=== PATIENT | female | born 1950 | race Caucasian/White ===

== ENCOUNTER → 2018-12-07 16:07 | Outpatient (CLI) | payer MEDICARE, BC, SELFPAY ==
--- NOTE | 2018-12-07 | BRBX_PTH ---
PATIENT: VELASQUEZ ESTRELLA LOC: [facility] U#:[id number] AGE/SX: 75/F ROOM: RE12/07/[address]: Dr. Nathaniel Carvalho MD : 1950 BED: DIS: SPEC #: [id number] RECD: 12/07/18 16:01 STATUS: KATHARINE DALTON #: [id number] NATACHA: 12/07/18 00:[address]: Nathaniel Carvalho DEPT: SURGICAL PATHOLOGY RECD BY: Alexander Mcpherson ENTERED: 12/08/18 10:05 SP TYPE: BREAST BX OTHR DR: Dr. Ezequiel Bueno MD Tissues: Left breast, NOS Procedures: Surgery Specimen Level IV HEADER OPERATION: Ultrasound-guided left breast biopsy PRE-OP DIAGNOSIS: Abnormal mammogram TISSUE SUBMITTED: Left breast biopsy MICROSCOPIC DIAGNOSIS Left breast, ultrasound-guided core biopsy: Collagenized stroma. Focal intraductal hyperplasia without atypia. No evidence of malignancy. AM:indy 12/09/18 COMMENT Case has been reviewed in consultation with Dr. Randolph who concurs with the above diagnosis. IDC:SJ MICROSCOPIC DESCRIPTION Slides are reviewed. GROSS DESCRIPTION Received is one container labeled with the patient's name and not further designated. The specimen consists of multiple elongated fragments of de la paz-yellow fibroadipose tissue that in aggregate measure 2 x 0.3 x 0.1 cm. The entire specimen is submitted in one cassette. / SJ:indy 12/08/18 TC:5 CPT: 96502
== END ==
PROVIDERS: Family Provider Family Medicine; PCP Family Medicine; Referring Provider Surgery; Visit Provider Surgery
DX: R92.8 Other abnormal and inconclusive findings on diagnostic imaging of breast (principal)
CPT/HCPCS: 88305

== ENCOUNTER → 2018-12-13 08:19 | Outpatient (CLI) | payer MEDICARE, BC, SELFPAY ==
--- NOTE | 2018-12-13 21:27 | PCM.OPRPT ---
Report of Operation Date of Procedure: 12/13/18 Pre-Operative Diagnosis: vague right breast abnormality Post-Operative Diagnosis: unable to localize right breast abnormality Surgery/Procedure Performed:: aborted attempted right stereotactic breast biopsy seamer panty hose: None Type of Anesthesia:: None Description of Procedure: The patient was brought to the stereotactic suite and informed of the plan course of events. The right breast was positioned in the CC approach on the Stanton stereotactic table. Mammographic image demonstrated the area of abnormality to be quite vague with compression at the expected site of abnormality using calcifications to help assure proper location. Stereotactic images were then obtained which demonstrated no obviously localizable abnormalities on either stereotactic image. The procedure was therefore aborted with plans for 6 month follow-up mammogram imaging.
--- NOTE | 2018-12-13 21:30 | OP.PCM_ITS ---
Report of Operation Date of Procedure: 12/13/18 Pre-Operative Diagnosis: vague right breast abnormality Post-Operative Diagnosis: unable to localize right breast abnormality Surgery/Procedure Performed:: aborted attempted right stereotactic breast biopsy dry dip worker: None Type of Anesthesia:: None Description of Procedure: The patient was brought to the stereotactic suite and informed of the plan c ourse of events. The right breast was positioned in the CC approach on the Stanton stereotactic table. Mammographic image demonstrated the area of abnormality to be quite vague with compression at the expected site of abnormality using calcifications to help assure proper location. Stereotactic images were then obtained which demonstrated no obviously localizable abnormalities on either stereotactic image. The procedure was therefore aborted with plans for 6 month follow-up mammogram imaging.
== END ==
PROVIDERS: Family Provider Family Medicine; PCP Family Medicine; Referring Provider Surgery; Visit Provider Surgery
DX: R92.8 Other abnormal and inconclusive findings on diagnostic imaging of breast (principal); Z53.8 Procedure and treatment not carried out for other reasons; I10 Essential (primary) hypertension; E11.3293 Type 2 diabetes mellitus with mild nonproliferative diabetic retinopathy without macular edema, bilateral; E11.42 Type 2 diabetes mellitus with diabetic polyneuropathy; I73.9 Peripheral vascular disease, unspecified; E78.5 Hyperlipidemia, unspecified; E55.9 Vitamin D deficiency, unspecified; Z96.651 Presence of right artificial knee joint
CPT/HCPCS: 19081

== ENCOUNTER → 2020-09-25 17:21 | Outpatient (CLI) | payer MEDICARE, BC, SELFPAY | PROVIDERS: PCP Family Medicine; Referring Provider Family Medicine; Visit Provider Family Medicine | DX: Z20.828 Contact with and (suspected) exposure to other viral communicable diseases (principal) | CPT/HCPCS: 87635; C9803; U0003 ==

== ENCOUNTER 2021-01-23 14:36 | Outpatient (RCR) | payer MEDICARE, BC, SELFPAY | END 2021-01-23 23:59 | LOC: IMMUN 14:36 | PROVIDERS: PCP Family Medicine; Referring Provider Family Medicine; Visit Provider Family Medicine | DX: Z23 Encounter for immunization (principal) | CPT/HCPCS: 0011A; 0012A ==

== ENCOUNTER 2021-04-21 13:07 | Emergency (ER) | payer MEDICARE, BC, SELFPAY ==
[2021-04-21 13:08] VITALS: BP 141/66; PULSE 81; RESP 18; TEMP 36.6; O2SAT 97; BMI 28.1
--- NOTE | 2021-04-21 13:39 | RAD_ITS ---
STUDY: X-RAY - LEFT FOOT CLINICAL: Female, 70 years old. Infection TECHNIQUE: 3 view(s) of the foot. COMPARISON: None. FINDINGS: Deformity of the navicular bone could be due to old injury. Acute fracture cannot be entirely excluded. Narrowing of the talonavicular joint. Deformity of the head of the third metatarsal. No demonstrated acute fracture. Mild degenerative arthrosis of the first metatarsophalangeal joint. Mild soft tissue swelling. RAD/Foot min 3 Views IMPRESSION: Deformity of the navicular bone with possible fracture. CT scan of the foot or MRI might add additional information. Electronically Signed: Krishan Sol MD at 14:58 EDT Tel , Service support ,
[2021-04-21 13:42] VITALS: BP 141/66; PULSE 81; RESP 18; TEMP 36.6; O2SAT 97
--- NOTE | 2021-04-21 13:49 | EDS_ITS ---
HPI History of Present Illness Chief Complaint: Cellulitis Informant: patient Narrative Narrative: 70-year-old diabetic female states on she was diagnosed with foot cellulitis and was placed on Keflex. She states that she was told that if it was not better in 2 days to come to emergency. She denies any fevers. She states the redness has spread and the swelling has continued. PFSH PFS Medical History Diabetes Hypertension Home Medications biotin 1 mg PO DAILY 04/21/21 [History Last Taken Unknown] cephalexin 500 mg PO TID 04/21/21 [History Last Taken Unknown] cholecalciferol (vitamin D3) [Vitamin D3] 0 mcg PO DAILY 04/21/21 [History Last Taken Unknown] doxycycline monohydrate 100 mg PO BID #20 capsule 04/21/21 [Rx Last Taken Unknown] insulin aspart U-100 [Novolog Flexpen U-100 Insulin] 15 unit SUBCUT BREAKFAST 04/21/21 [History Last Taken Unknown] insulin aspart U-100 [Novolog Flexpen U-100 Insulin] 17 unit SUBCUT DINNER 04/21/21 [History Last Taken Unknown] insulin aspart U-100 [Novolog PenFill U-100 Insulin] 16 unit SUBCUT LUNCH 04/21/21 [History Last Taken Unknown] insulin detemir U-100 [Levemir Flexpen] 50 unit SUBCUT QHS 04/21/21 [History Last Taken Unknown] lisinopril 10 mg PO BID 04/21/21 [History Last Taken Unknown] magnesium 0 mg PO DAILY 04/21/21 [History Last Taken Unknown] metformin 850 mg PO TID 04/21/21 [History Last Taken Unknown] omega-3 fatty acids-vitamin E [Fish Oil] 0 cap PO DAILY 04/21/21 [History Last Taken Unknown] ped [id number] [Multivit w/Fluoride and Iron] 1 tab PO DAILY 04/21/21 [History Last Taken Unknown] vitamin C32-[id number] acid 0 tab PO DAILY 04/21/21 [History Last Taken Unknown] Allergy/AdvReac Type Severity Reaction Status Date / Time acetaminophen [From Vicodin] Allergy Vomiting Verified 04/21/21 13:08 codeine Allergy Vomiting Verified 04/21/21 13:08 hydrocodone [From Vicodin] Allergy Vomiting Verified 04/21/21 13:08 tolterodine [From Detrol] Allergy PT UNSURE Verified 04/21/21 13:08 OF REACTION Surgical History History of left knee replacement Social History (Updated 04/21/21 @ 13:[address] Omar Millan DO) Smoking Status: Never smoker substance use type: does not use ROS ROS ED Constitutional Constitutional ED: Denies chills or weight loss Eyes Eyes: Denies change in vision or diplopia ENT ENT ED: Denies ear pain, rhinorrhea or sore throat Cardiovascular Cardiovascular: Denies chest pain, orthopnea, palpitations or racing heartbeat Respiratory/Chest Respiratory/Chest: Denies cough, dyspnea or orthopnea Gastrointestinal Gastrointestinal: Denies abdominal pain, diarrhea, nausea or vomiting Genitourinary Genitourinary ED: Denies dysuria, hematuria or urinary frequency Musculoskeletal Musculoskeletal: Reports other Details: Left foot swelling ; Denies arthralgias or myalgias Integumentary Reports rash; Denies abscess Neurologic Neurologic: Denies headache(s) or weakness Psychiatric Psychiatric: Denies anxiety, depression, suicidal ideation or suicidal thoughts Endocrine Endocrinology: Denies polydipsia, polyphagia or polyuria Allergic/Immunologic Allergic/Immunologic ED: Denies mouth swelling, tongue swelling or urticaria EXAM Physical Exam Const Vital Signs: 04/21/21 13:08 04/21/21 13:42 04/21/21 14:10 Temperature 97.8 F 97.8 F 97.8 F Temperature Source Temporal Temporal Temporal Pulse Rate 81 81 81 Respiratory Rate 18 18 18 Blood Pressure 141/66 H 141/66 H 141/66 H Blood Pressure Mean 91 91 91 Pulse Ox 97 97 97 Oxygen Delivery Method Room Air Room Air Room Air Positive well nourished and well developed General Appearance ED: well developed HEENT Reports normocephalic, head/scalp atraumatic and moist mucous membranes Eyes PERRL and EOMs intact bilaterally Neck no lymphadenopathy, supple and no JVD Resp normal respiratory effort and clear to auscultation bilaterally Cardio regular rate, regular rhythm and no murmurs GI normal to inspection, nondistended, normoactive bowel sounds and non-tender Palpation: soft Back/Spine no CVA tenderness and normal ROM Extremity Extremity Narrative: Left foot demonstrates some mild erythema especially on the dorsum and the medial aspect. It is mildly swollen. There is some increased warmth General Extremety ED: Yes edema General Extremity: edema Neuro oriented x3 and CN's II-XII intact bilaterally Sensorium / Orientation: alert Motor Exam: strength 5/5 throughout Psych mental status grossly normal Mood & Affect: Negative for depressed or tearful Skin no rashes or lesions noted and no wounds MDM MDM MDM Narrative Medical decision making narrative: Patient's white blood cell count is normal at 8.2. No shift. X-rays of the foot on my interpretation demonstrated possible navicular fracture. Radiology agrees this. However she has no history of trauma and is not focally tender there. I am going to add in doxycycline to the patient's Keflex. Past that she follow-up with her doctor in 48 hours. Lab Data Labs: Laboratory Results - last 24 hr 04/21/21 13:49 WBC 8.2 RBC 3.70 L Hgb 10.9 L Hct 34.4 L MCV 93.0 MCH 29.5 MCHC 31.7 L RDW Std Deviation 42.4 RDW Coeff of Shannan 12.4 Plt Count 172 MPV 10.1 Immature Gran % (Auto) 0.400 Neut % (Auto) 66.7 Lymph % (Auto) 17.5 L [place] % (Auto) 10.8 H Eos % (Auto) 4.1 Baso % (Auto) 0.5 Absolute Neuts (auto) 5.5 Absolute Lymphs (auto) 1.44 Nucleated RBC % 0 Radiography Diagnostic Testing: Radiology Impression Foot X-Ray 04/21/21 13:39 IMPRESSION: Deformity of the navicular bone with possible fracture. CT scan of the foot or MRI might add additional information. Electronically Signed: Krishan Sol MD at 14:58 EDT Tel , Service support , Discharge Plan Triage Chief Complaint: Cellulitis ED Provider: Omar Millan Dx/Rx/DC Orders Clinical Impression: Cellulitis in diabetic foot Instructions: Cellulitis Prescriptions: New doxycycline monohydrate 100 MG capsule 100 mg PO BID Qty: 20 RF: 0 No Action metformin 850 mg Tablet 850 mg PO TID RF: 0 cephalexin 500 mg capsule 500 mg PO TID RF: 0 lisinopril 10 mg tablet 10 mg PO BID RF: 0 insulin aspart U-100 [Novolog PenFill U-100 Insulin] 100 unit/mL Cartridge 16 unit SUBCUT LUNCH RF: 0 insulin aspart U-100 [Novolog Flexpen U-100 Insulin] 100 unit/mL (3 mL) Insulin Pen 15 unit subcut BREAKFAST RF: 0 insulin aspart U-100 [Novolog Flexpen U-100 Insulin] 100 unit/mL (3 mL) Insulin Pen 17 unit SUBCUT DINNER RF: 0 Levemir Flexpen 100 unit/mL (3 mL) Insulin Pen 50 unit SUBCUT QHS RF: 0 Multivit w/Fluoride and Iron 0.5-12 mg Tablet,Chewable 1 tab PO DAILY RF: 0 magnesium 200 mg Tablet 0 mg PO DAILY RF: 0 Fish Oil 1,000 mg Capsule 0 cap PO DAILY RF: 0 vitamin K72-nusvs acid 0.5-1 mg Tablet 0 tab PO DAILY RF: 0 cholecalciferol (vitamin D3) [Vitamin D3] 50 mcg (2,000 unit) Capsule 0 mcg PO DAILY RF: 0 biotin 1 mg Capsule 1 mg PO DAILY RF: 0 Primary Care Provider: Ezequiel Bueno Referrals: Ezequiel Bueno MD [Primary Care Provider] - 2 Days for wound check Disposition Disposition: Home, self care
[2021-04-21 13:56] LABS: Absolute Lymphocyte Count 1.44 X10^3/uL (0.83-4.51); Absolute Neutrophil Count 5.5 X10^3/uL (2.0-7.7); Basophil# 0.04 X10^3/uL; Basophil% 0.5 % (0-1); Eosinophil# 0.34 X10^3/uL; Eosinophils% 4.1 % (0-5); Hematocrit 34.4 % (37-47); Hemoglobin 10.9 g/dL (12.0-15.0); Lymphocyte # 1.44 X10^3/ul (0.83-4.51); Lymphocyte % 17.5 % (19-41); Mean Corp Hgb Conc 31.7 g/dL (32-36); Mean Corpuscular Hgb 29.5 pg (27.0-32.0); Mean Platelet Vol. 10.1 fl (6.2-12.0); Monocyte# 0.89 X10^3/uL; Monocyte% 10.8 % (0-10); NRBC Flagged by Analyzer 0 % (0-5); Neutrophil % 66.7 % (47-70); Platelet Count 172 K/mm3 (150-450); RBC Distribution Width CV 12.4 % (11.6-14.6); RBC Distribution Width SD 42.4 fl (35.1-43.9); White Blood Count 8.2 K/mm3 (4.4-11.0)
[2021-04-21 14:10] VITALS: BP 141/66; PULSE 81; RESP 18; TEMP 36.6; O2SAT 97
[2021-04-21 15:27] VITALS: BP 130/69; PULSE 72; RESP 15; O2SAT 98
== END 2021-04-21 15:27 | disposition home or self-care (01) ==
PROVIDERS: Emergency Provider Emergency Medicine; PCP Family Medicine
DX: L03.116 Cellulitis of left lower limb (principal); E11.9 Type 2 diabetes mellitus without complications; I10 Essential (primary) hypertension; Z79.4 Long term (current) use of insulin; Z79.899 Other long term (current) drug therapy; Z96.652 Presence of left artificial knee joint
CPT/HCPCS: 73630; 85025; 99283

== ENCOUNTER 2022-04-16 10:00 | Outpatient (RCR) | payer MEDICARE, BC, SELFPAY ==
--- NOTE | 2022-04-11 09:18 | HP.PTEVAL_ITS ---
Patient's Visit Information VELASQUEZ ESTRELLA is a 71 year old F referred to Physical Therapy by Dr. Rubén Farley DPM with a diagnosis of L charcot foot, Diabetic neuropathy type II. Date of Evaluation: 03/26/22 Physical Therapist: Rasta Ross DPT - Visit Plan Frequency: 1-2x /Week Duration: 4 Weeks Plan: Start with calf stretching. Add in gait instruction and progression of walking program. Add in gym and home exercises for BLE strengthening. Progress as tolerated. - Subjective Pt. is here today for her initial evaluation with diagnosis of L charcot foot, Diabetic neuropathy type II. Pt. reports overall doing better, but was in a boot and WBing for several weeks. She reports now she is doing better, but still has a limp with walking. She reports she doesn't have any pain, but has not done a ton of activities or walking due to fear of injury. She previously worked out several times per week including land and aquatic therapy. She was walking several miles per day and occasionally hiking. She reports minimal feeling in BLEs. She does frequent skin checks, no issues. She is wearing an ankle/foot orthosis with good tolerance. It has been modified several times to increase better fit. She is hopeful to increase LE strength/ROM in order to get back to gym exercises and recreational activities without limitations. - Objective POSTURE: Pt. has decent posture in stance. She is very pes planus in her L foot. She tends to stand with hip ER (toeing out positioning). Pt. has slight increase in wt. shift to R side. PALPATION: Pt. has minimal sensation in BLEs. Pt. has no pain with palpation of BLEs. Normal skin appears, no signs of breakdown. NEURO: normal ankle and patellar DTR bilaterally. Pt. has minimal sensation to light touch of BLEs, normal to firm touch. ROM: Pt. had tightness in B G/S complexes, normal HS length noted bilaterally. Pt. has normal knee and hip ROM. MMT: B ankles 5/5 throughout; knees: 4/5 B flexion/extension. L Hip: flexion 4/5, abd 4/5, ext 4+/5. R hip: flexion 4/5, abd 4/5, ext 4/5. GAIT: Pt. ambulates without AD. She has a vaulting on R side, or collapsing down on L side. She has limited push off with LLE during pre swing, very limited rocker moment noted. STAIRS: Pt. did well with ascending, early heel off with descending on L side. No pain noted with walking. - Balance/Special Test Scores Lower Extremity Functional Score: 46 - Goals Goal 1:: LTG: Pt. to be I with home and gym exercises to increase carry over. Goal Time Frame: 2-4 Weeks Goal 2:: STG: Pt. to have increased L ankle DF to 10deg without increase in symptoms allowing for improved gait pattern. Goal Time Frame: 2 Weeks Goal 3:: LTG: Pt. to ambulate with improved normal gait pattern with improved rocker moment for at least 1500feet. Goal Time Frame: 4-6 Weeks Goal 4:: LTG: pt. to have increased BLE strength increased to 5/5 throughout without increase in symptoms. Goal Time Frame: 4-6 Weeks - Rehabilitation Potential Physical Therapy Diagnosis: Pt. has signs and symptoms consistent with L charcot foot, Diabetic neuropathy type II. Pt. has subsequent tightness in L calf, decreased tolerance to walking, altered gait pattern and BLE weakness. Pt. would benefit from PT to address the above limitations progressing back to all recreational walking and activities. Rehabilitation Potential: Good - Anticipated Interventions Patient/Client Instruction: Educate patient on: Condition, Plan of Care, Risk Factors, Benefits of Fitness Program For the Purpose of:: To improve health and function, To foster healthy habits, To improve decision making, To facilitate caregiver knowledge, To improve self management, To prevent re-injury, To improve ability to perform tasks related to life management Therapeutic Exercise to Include: Strength training, Power training, Balance training, Postural training, Flexibilty training, Gait and locomotor training, Passive ROM, Active ROM For the Purpose of:: To decrease pain, To decrease swelling/inflammation, To increase ROM, To improve nutrient delivery to tissue, To increase oxygenation perfusion, To improve muscle performance and motor function, To improve ability to perform ADL's, To increase tolerance to activity/condition/position, To improve gait and locomotor functions, To improve health of tissue, To decrease soft tissue restriction, To increase flexibility/ROM Thank you for the opportunity to evaluate your patient. For Medicare and Medicare HMO plans, please review the plan of care and approve it. It will need to be FAXED BACK to us at [phone] for Medicare purposes. For Medicare only, by signing this I certify the plan of care. Please let me know if there are questions or concerns regarding this plan of care. Physician Signature: Date:
== END 2022-04-16 19:00 | disposition home or self-care (01) ==
LOC: PT 10:00
PROVIDERS: PCP Family Medicine; Referring Provider Podiatrist Foot & Ankle Surgery; Visit Provider Podiatrist Foot & Ankle Surgery
DX: M14.672 Charcot's joint, left ankle and foot (principal); E11.49 Type 2 diabetes mellitus with other diabetic neurological complication
CPT/HCPCS: 97110; 97161

== ENCOUNTER 2024-01-27 12:30 | Outpatient (RCR) | payer MEDICARE, BC, SELFPAY ==
--- NOTE | 2023-10-29 16:52 | HP.PTEVAL ---
Patient's Visit Information Visit Information Visit Information: VELASQUEZ ESTRELLA is a 73 year old F referred to Physical Therapy by Dr. Rubén Farley DPM with a diagnosis of Imbalance. Date of Evaluation: 10/08/23 Physical Therapist: Rasta Ross DPT Visit Plan Frequency: 2x /Week Duration: 4 Weeks Plan: Start with static and dynamic balance and BLE strengthening. Subjective Subjective: Pt. is here today for her initial evaluation with diagnosis of imbalance. Pt. reports having increased imbalance while on her trip abroad. Pt. reports no falls, but feels unstable. Pt. reports no pain in either LE. Pt. reports having some N/T in her feet, known neuropathy. Pt. does use a brace on her ankle. Pt. does work out at local gym frequently. Pt reports no falls, but feels like she is declining in her balance. Objective Objective: POSTURE: wide KEYANNA, but able to correct. PALPATION: No issues with palpation of BLEs. NEURO: decreased sensation in BLEs, decreased achilles DTR1+, normal DTR of B patellar ROM: Pt. has tight B calves and HS. MMT: Pt. has weakness in B plantar flexors 4-/5 bilat, DF 4/5; knee ext 5/5, knee flexion 5/5. GAIT: Pt. ambulates with increased lateral sway. No AD. Pt. has good foot clearance. STAIRS: very apprehensive with descending, clings to 2 HR. Balance/Special Test Scores Functional Gait Assessment Score: 18 % Disability: 40.0000 TUG Test Time Seconds: 17.1 Goals Goal 1:: Pt. to be I with HEp. Goal Time Frame: 2-4 Weeks Goal 2:: PT. to have improved TUG time to less than 10sec. Goal Time Frame: 4-6 Weeks Goal 3:: Pt. to have increased BLE strength to at least 4+/5 throughout. Goal Time Frame: 4-6 Weeks Goal 4:: LTG: PT. to have increased FGA to at least 22/30 indicating improved stability in stance. Goal Time Frame: 4-6 Weeks Rehabilitation Potential Physical Therapy Diagnosis: Pt. has signs and symptoms consistent with imbalance. She presents with some weakness in BLEs and difficulty in narrow and SLS. Pt. would benefit from PT to work on the above limitations progressing back to all recreational activities without limitations. Rehabilitation Potential: Excellent Anticipated Interventions Patient/Client Instruction: Educate patient on: Condition, Plan of Care, Risk Factors and Benefits of Fitness Program For the Purpose of:: To improve muscle performance and motor function, To improve ability to perform ADL's, To increase tolerance to activity/condition/position, To improve performance and independence with ADL's, To decrease level of supervision to perform tasks and To increase flexibility/ROM Therapeutic Exercise to Include: Power training, Endurance training and Balance training For the Purpose of:: To improve nutrient delivery to tissue, To increase oxygenation perfusion, To improve muscle performance and motor function, To improve ability to perform ADL's, To increase tolerance to activity/condition/position, To improve ability of physical actions for home/community/work/leisure, To improve gait and locomotor functions and To improve balance Text: Thank you for the opportunity to evaluate your patient. For Medicare and Medicare HMO plans, please review the plan of care and approve it. It will need to be FAXED BACK to us at [phone] for Medicare purposes. For Medicare only, by signing this I certify the plan of care. Please let me know if there are questions or concerns regarding this plan of care. Physician Signature: Date:
--- NOTE | 2024-02-03 16:27 | HP.PTDCSUM ---
Discharge Summary D/C summary: It has been my pleasure to treat VELASQUEZ ESTRELLA referred by Dr. Rubén Fraley DPM, with the diagnosis of Imbalance for a total of 7 visit(s). Discharge Date: 01/27/24 Please see the following information for a summary of their discharge status. Subjective Subjective: Pt. reports overall feeling stronger, but is still having issues with her ability to stand on 1 leg. She reports being HEP compliant Objective Objective/Function: Pt.is overall doing better. She has decent strength in BLEs. She has marked difficulty with B ankle PF strength. STAIRS: much better with light use of UEs on HR. She does have some difficulty with controlled eccentric lowering. gait: pt. has good gait pattern, no major issues with imbalance or limitations. ROM: Pt. has good ROM, except some marked DF/PF loss on LLE. Goals Goal 1:: Pt. to be I with HEp. Goal Progress: Goal Met Goal 2:: PT. to have improved TUG time to less than 10sec. Goal Progress: Goal Met Goal 3:: Pt. to have increased BLE strength to at least 4+/5 throughout. Goal Progress: Goal Met Goal 4:: LTG: PT. to have increased FGA to at least 22/30 indicating improved stability in stance. Goal Progress: Goal Met Plan Plan: Pt. to be DC to HEP at this point in time. D/C Information Discharge Comments: Pt. was treated for her imbalance and difficulty with stair negotiation with out railings. Pt. is overall better with her balance as seen in improved TUG and FGA. She does however still have issues with ankle strength and control. Pt. is limited with her B ankle PF causing some issues with her balance. At this point in time she is I with exercises for her ankle strengthening and balance training. Pt. will be DC to HEP at this point in time. d/c sentence: If there are questions or concerns regarding this patient's physical therapy, please feel free to call me at [phone]. Thank you for the referral of this patient. Sincerely, Rasta Lucioos, DPT Balance/Gait/Functional tests Balance/Special Test Scores Functional Gait Assessment Score: 22 % Disability: 26.6700 Lower Extremity Functional Score: 54 TUG Test Time Seconds: 9 Tug Test: <10 sec.=free mobile
== END 2024-01-27 19:00 | disposition home or self-care (01) ==
LOC: PT 12:30
PROVIDERS: PCP Family Medicine; Visit Provider Podiatrist Foot & Ankle Surgery
DX: R26.81 Unsteadiness on feet (principal)
CPT/HCPCS: 97110; 97161